=== PATIENT | female | born 1960 | race Caucasian/White ===

== ENCOUNTER 2019-04-10 10:20 | Emergency (ER) | payer BC ==
[2019-04-10 10:34] VITALS: BP 140/94; PULSE 60; O2SAT 99
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
[2019-04-10] MEDS ORDERED: Adacel Vial IM ONE (10:44)
[2019-04-10] MEDS: Adacel Vial IM ONE (10:46)
== END 2019-04-10 11:01 | disposition home or self-care (01) ==
LOC: ED 10:20
DX: S00.81XA Abrasion of other part of head, initial encounter (principal); W55.03XA Scratched by cat, initial encounter; L03.211 Cellulitis of face; E03.9 Hypothyroidism, unspecified; K21.9 Gastro-esophageal reflux disease without esophagitis; F32.9 Major depressive disorder, single episode, unspecified
CPT/HCPCS: 90471; 90715; 99283